=== PATIENT | female | born 1930 | race Caucasian/White ===

== ENCOUNTER 2018-05-04 11:22 | Observation (INO) ==
--- NOTE | 2018-05-04 12:51 | ED ---
HPI General Chief complaint: Extremity Problem,Nontraumatic Stated complaint: Lt leg swelling/redness x this am Time Seen by Provider: 05/04/18 12:04 Source: patient Mode of arrival: ambulatory Limitations: no limitations History of Present Illness HPI Narrative: Patient presents with increased pain and discomfort and redness of the left lower extremity. No chills or fever. Patient is normally stable and has no other signs or symptoms. See medical history Related Data Home Medications Medication Instructions Recorded Confirmed warfarin [Coumadin] PO DAILY 05/04/18 Allergies Allergy/AdvReac Type Severity Reaction Status Date / Time Sulfa (Sulfonamide Allergy Severe FACIAL Verified 05/04/18 11:44 Antibiotics) SWELLING penicillin G Allergy Unknown UNKNOWN Verified 05/04/18 11:44 aspirin AdvReac Intermediate Hives Verified 05/04/18 11:44 Review of Systems ROS: all other systems reviewed are negative [facility] Medical History Medical History DVT (deep venous thrombosis) (Acute) High cholesterol (Acute) Hx of hysterectomy (Acute) Phlebitis (Acute) Surgical History Surgical History History of tonsillectomy and adenoidectomy (Acute) Hx of appendectomy (Acute) Hx of varicose vein stripping (Acute) Social History Social History Substance History: No History of Abuse Second Hand Smoke Exposure: No Smoking Status: Former smoker Tobacco Type: Cigarettes How Often Do You Have a Drink Containing Alcohol: Never Recent Travel in [facility] within the Last 8 Weeks: No Recent Out of Country Travel within the Last 8 Weeks: No Immunization History Tetanus Immunization: Unsure Exam Narrative Exam Narrative: GENERAL: [-] SKIN: Focused skin assessment warm/dry. HEAD: Atraumatic. Normocephalic. EYES: Pupils equal and round. No scleral icterus. No injection or drainage. ENT: No nasal bleeding or discharge. Mucous membranes pink and moist. NECK: Trachea midline. No JVD. CARDIOVASCULAR: Regular rate and rhythm. No murmur appreciated. RESPIRATORY: No accessory muscle use. Clear to auscultation. Breath sounds equal bilaterally. Crepitant rales in bases clear with deep inspiration GASTROINTESTINAL: Abdomen soft, non-tender, nondistended. Hepatic and splenic margins not palpable. MUSCULOSKELETAL: Patient has bilateral pretibial edema however significant swelling to the left foreleg and ankle and foot. With erythema and vesicles. No lymphangitis. NEUROLOGICAL: Awake and alert. No obvious cranial nerve deficits. Motor grossly within normal limits. Normal speech. PSYCHIATRIC: Appropriate mood and affect; insight and judgment normal. Course Initial Documented Vital Signs Temperature 97.9 F 05/04/18 11:37 Pulse Rate 71 05/04/18 11:37 Respiratory Rate 20 05/04/18 11:37 Blood Pressure 155/72 H 05/04/18 11:37 Pulse Oximetry 100 05/04/18 11:37 Last Documented Vital Signs Temperature 97.9 F 05/04/18 11:37 Pulse Rate 70 05/04/18 14:11 Respiratory Rate 18 05/04/18 14:11 Blood Pressure 143/62 H 05/04/18 14:11 Pulse Oximetry 96 05/04/18 14:11 Critical Care Time Critical Care Time: No Medical Decision Making MDM Narrative Medical decision making narrative: Patient has cellulitis of lower extremity of new onset. Patient reportedly had no erythema or significant swelling yesterday however woke up with significant discomfort and finally came into the emergency department for further evaluation. No chills or fever. Medical Screen Exam Complete: Yes Emergency Medical Condition: Yes Lab Data Result diagrams: 05/04/18 13:17 05/04/18 13:17 Lab Results 05/04/18 05/04/18 05/04/18 Range/Units 13:00 13:17 13:17 CBC w Diff Auto diff final WBC 4.9 (4.0-11.0) th/mm3 RBC 4.63 (4.00-5.30) mil/mm3 Hgb 13.3 (11.6-15.3) gm/dL Hct 39.7 (35.0-46.0) % MCV 85.7 (80.0-100.0) fL MCH 28.6 (27.0-34.0) pg MCHC 33.3 (32.0-36.0) % RDW 14.3 (11.6-17.2) % Plt Count 190 (150-450) th/mm3 MPV 7.7 (7.0-11.0) fL Neut % (Auto) 71.0 H (16.0-70.0) % Lymph % (Auto) 18.4 (9.0-44.0) % [place] % (Auto) 8.8 H (0.0-8.0) % Eos % (Auto) 1.3 (0.0-4.0) % Baso % (Auto) 0.5 (0.0-2.0) % Neut # (Auto) 3.5 (1.8-7.7) th/mm3 Lymph # (Auto) 0.9 L (1.0-4.8) th/mm3 [place] # (Auto) 0.4 (0.0-0.9) th/mm3 Eos # (Auto) 0.1 (0.0-0.4) th/mm3 Baso # (Auto) 0.0 (0.0-0.2) th/mm3 WBC Differential . Differential Comment . PT 18.2 H (9.8-11.6) sec INR 1.8 Ratio APTT 35.6 H (24.3-30.1) sec Sodium (136-145) meq/L Potassium (3.5-5.1) meq/L Chloride (98-107) meq/L Carbon Dioxide (21.0-32.0) meq/L Anion Gap (5-15) meq/L BUN (7-18) mg/dL Creatinine (0.50-1.00) mg/dL Estimated GFR (>89) mL/min Random Glucose (74-106) mg/dL Lactic Acid (0.4-2.0) mmol/L Calcium (8.5-10.1) mg/dL Total Bilirubin (0.2-1.0) mg/dL AST (15-37) U/L ALT (10-53) U/L Alkaline Phosphatase (45-117) U/L Total Protein (6.4-8.2) g/dL Albumin (3.4-5.0) g/dL Urine Color Yellow (Yellw/Straw) Urine Clarity Cloudy H (Clear) Urine pH 6.0 (5.0-8.5) Ur Specific [place] 1.010 (1.002-1.035) Urine Protein Negative (Neg-Trace) mg/dL Urine Glucose (UA) Negative (Negative) mg/dL Urine Ketones Negative (Negative) mg/dL Urine Occult Blood Small H (Negative) Urine Nitrate Positive H (Negative) Urine Bilirubin Negative (Negative) Urine Urobilinogen 0.2 (Less than 2) mg/dL Ur Leukocyte Esterase Large H (Negative) Urine WBC 21-50 H (0-5) /hpf Urine Bacteria Many H (None) /hpf Micro UA Comment Culture indicated Ur Microscopic Review Microscopic reviewed Urine Culture Comments Culture indicated 05/04/18 05/04/18 Range/Units 13:17 13:17 CBC w Diff WBC (4.0-11.0) th/mm3 RBC (4.00-5.30) mil/mm3 Hgb (11.6-15.3) gm/dL Hct (35.0-46.0) % MCV (80.0-100.0) fL MCH (27.0-34.0) pg MCHC (32.0-36.0) % RDW (11.6-17.2) % Plt Count (150-450) th/mm3 MPV (7.0-11.0) fL Neut % (Auto) (16.0-70.0) % Lymph % (Auto) (9.0-44.0) % [place] % (Auto) (0.0-8.0) % Eos % (Auto) (0.0-4.0) % Baso % (Auto) (0.0-2.0) % Neut # (Auto) (1.8-7.7) th/mm3 Lymph # (Auto) (1.0-4.8) th/mm3 [place] # (Auto) (0.0-0.9) th/mm3 Eos # (Auto) (0.0-0.4) th/mm3 Baso # (Auto) (0.0-0.2) th/mm3 WBC Differential Differential Comment PT (9.8-11.6) sec INR Ratio APTT (24.3-30.1) sec Sodium 137 (136-145) meq/L Potassium 3.8 (3.5-5.1) meq/L Chloride 103 (98-107) meq/L Carbon Dioxide 24.9 (21.0-32.0) meq/L Anion Gap 9 (5-15) meq/L BUN 37 H (7-18) mg/dL Creatinine 1.20 H (0.50-1.00) mg/dL Estimated GFR 42 L (>89) mL/min Random Glucose 89 (74-106) mg/dL Lactic Acid 0.7 (0.4-2.0) mmol/L Calcium 9.2 (8.5-10.1) mg/dL Total Bilirubin 0.6 (0.2-1.0) mg/dL AST 34 (15-37) U/L ALT 28 (10-53) U/L Alkaline Phosphatase 59 (45-117) U/L Total Protein 8.9 H (6.4-8.2) g/dL Albumin 4.1 (3.4-5.0) g/dL Urine Color (Yellw/Straw) Urine Clarity (Clear) Urine pH (5.0-8.5) Ur Specific [place] (1.002-1.035) Urine Protein (Neg-Trace) mg/dL Urine Glucose (UA) (Negative) mg/dL Urine Ketones (Negative) mg/dL Urine Occult Blood (Negative) Urine Nitrate (Negative) Urine Bilirubin (Negative) Urine Urobilinogen (Less than 2) mg/dL Ur Leukocyte Esterase (Negative) Urine WBC (0-5) /hpf Urine Bacteria (None) /hpf Micro UA Comment Ur Microscopic Review Urine Culture Comments Imaging Data Radiologist's impression: Venous Doppler Study 05/04/18 13:21 CONCLUSION: 1. No evidence of DVT. Discharge Plan Discharge Disposition Patient Disposition: 30 Still Patient Physicians Team ED Provider: Mario Cantor Primary Care Provider: UNKNOWN, Attending Provider: Samuel Mccormack Discharge Interventions Interventions: ED Discharge Assessment Last Done: 05/04/18 16:29 Vital Signs Last Done: 05/04/18 14:11 Status ED Status: Admitted Observation Patient
[2018-05-04] MEDS ORDERED: Vancomycin Inj 1 GM/200 ML PIGGYBACK IV.SIG ONE (12:52)
[2018-05-04 13:36] LABS: Chloride 103 meq/L (98-107); Potassium 3.8 meq/L (3.5-5.1); Sodium 137 meq/L (136-145)
[2018-05-04 13:37] LABS: Baso % (Auto) 0.5 % (0.0-2.0); Eos # (Auto) 0.1 th/mm3 (0.0-0.4); Eos % (Auto) 1.3 % (0.0-4.0); Hematocrit 39.7 % (35.0-46.0); Hemoglobin 13.3 gm/dL (11.6-15.3); Lymph # (Auto) 0.9 th/mm3 (1.0-4.8); Lymph % (Auto) 18.4 % (9.0-44.0); Mean Corpuscular HGB Conc 33.3 % (32.0-36.0); Mean Corpuscular Hemoglobin 28.6 pg (27.0-34.0); Mean Corpuscular Volume 85.7 fL (80.0-100.0); Mean Platelet Volume 7.7 fL (7.0-11.0); Mono # (Auto) 0.4 th/mm3 (0.0-0.9); Mono % (Auto) 8.8 % (0.0-8.0); Neut # (Auto) 3.5 th/mm3 (1.8-7.7); Platelet Count 190 th/mm3 (150-450); Red Blood Count 4.63 mil/mm3 (4.00-5.30); Red Cell Distribution Width 14.3 % (11.6-17.2); White Blood Count 4.9 th/mm3 (4.0-11.0)
[2018-05-04 13:39] LABS: Activated Partial Thrombo Time 35.6 sec (24.3-30.1); Albumin 4.1 g/dL (3.4-5.0); Anion Gap 9 meq/L (5-15); Calcium 9.2 mg/dL (8.5-10.1); Carbon Dioxide 24.9 meq/L (21.0-32.0); Glucose,Random 89 mg/dL (74-106); INR 1.8 Ratio; Prothrombin Time 18.2 sec (9.8-11.6)
[2018-05-04 13:40] LABS: Bilirubin,Urine Negative (Negative); Clarity,Urine Cloudy (Clear); Color,Urine Yellow (Yellw/Straw); Glucose,Urine (UA) Negative (Negative); Leukocyte Esterase,Urine Large (Negative); Nitrite,Urine Positive (Negative); Urobilinogen,Urine 0.2 mg/dL (Less than 2)
[2018-05-04 13:40] LABS: Blood Urea Nitrogen 37 mg/dL (7-18)
[2018-05-04 13:42] LABS: Alanine Aminotransferase 28 U/L (10-53); Aspartate Aminotransferase 34 U/L (15-37)
[2018-05-04 13:43] LABS: Glomerular Filtration Rate 42 mL/min (>89)
[2018-05-04 13:44] LABS: Total Protein 8.9 g/dL (6.4-8.2)
--- NOTE | 2018-05-04 13:44 | US ---
EXAM DATE: 05/04/2018 1:21 PM EDT AGE/SEX: 88 years / Female INDICATIONS: Left leg pain. CLINICAL DATA: This is the patient's initial encounter. Patient reports that signs and symptoms have been present for 1 day and indicates a pain score of 4/10. MEDICAL/SURGICAL HISTORY: Deep venous thrombosis. Hypercholesterolemia. Phlebitis. Hysterect janki. Tonsillectomy. Appendectomy. Varicose vein stripping. Adenoidectomy. COMPARISON: TLI, US LEG VENOUS DOPPLER, LEFT, 01/10/2017. . TECHNIQUE: Venous ultrasound of both lower extremities was performed from the inguinal ligament to t he proximal calf. Real-time, color Doppler and spectral tracing, compression and augmentation techni ques were used. FINDINGS: Normal compression of the deep venous system from the inguinal region to the proximal calf . No echogenic clot is seen. Normal response of the venous system to augmentation and respiration. Th ere is edema in the subcutaneous soft tissues of the calf. CONCLUSION: 1. No evidence of DVT. Electronically signed by: Joaquin Stearns MD 05/04/2018 1:43 PM EDT
[2018-05-04 13:45] LABS: Alkaline Phosphatase 59 U/L (45-117)
[2018-05-04 13:46] LABS: Bacteria,Urine Many /hpf; WBC,Urine 21-50 /hpf (0-5)
[2018-05-04] MEDS ORDERED: Vancomycin Inj 1,000 MG in Sodium Chlor 0.9% Inj 250 ML IV.SIG ONE (14:00)
[2018-05-04] MEDS ORDERED: Bisacodyl 10 MG Supp RECTAL PRN (15:42)
[2018-05-04] MEDS ORDERED: Acetaminophen 325 MG Tablet PO PRN (15:42)
--- NOTE | 2018-05-04 16:52 | P.HP ---
History of Present Illness Primary Care Physician: UNKNOWN Chief Complaint: Left lower extremity pain and redness History of Present Illness: This is a pleasant 88-year-old female patient with a known medical history of DVT on Coumadin who presented to the ED with complaints of sudden left lower extremity pain and redness. Patient states she was on her feet all day yesterday cleaning the house and doing housework, went to bed in her normal state of health and woke up with the left lower extremity swelling and increasing pain. Patient does have a history of arthritis. Has had a left lower extremity DVT in the past on Coumadin. She denies any recent illness including fever, chills, cough, headache, dumping, nausea vomiting diarrhea or dysuria. She does admit to history of recent UTI, does not remember what medication she was on to treat this but she recently finished her antibiotics within the last month. Patient lives at home alone, able to perform all ADLs per self. Does not smoke cigarettes. History of varicose vein stripping 1958 & 1961. - Diagnosis (1) PVD (peripheral vascular disease) (2) Cellulitis (3) UTI (urinary tract infection) Review of Systems All other systems reviewed negative except as stated in HPI PMFSH - History History Provided By: Patient - Medical History Medical History: Medical History (Last Reviewed 05/04/18 @ 16:47 by Naima Marmolejo) DVT (deep venous thrombosis) High cholesterol Hx of hysterectomy Phlebitis - Surgical History Surgical History: Surgical History (Last Reviewed 05/04/18 @ 16:47 by Naima Marmolejo) History of tonsillectomy and adenoidectomy Hx of appendectomy Hx of varicose vein stripping - Family History Family History: Family History (Last Updated 05/04/18 @ 16:48 by Naima Marmolejo) Other Family history non-contributory - Tobacco History Second Hand Smoke Exposure: No Tobacco Use In Past 30 Days: No Smoking Status: Former smoker Tobacco Type: Cigarettes - Alcohol History How Often Do You Have a Drink Containing Alcohol: Never - Substance Use History Substance History: No History of Abuse - Travel History Recent Travel in the [facility] Within the Last 8 Weeks: No Recent Travel Out of the Country Within the Last 8 Weeks: No - Immunization History Tetanus Immunization: Unsure Medications and Allergies Active Medications: Active Medications Acetaminophen (Tylenol) 650 mg PO Q4H PRN PRN Reason: Temp > 100.4 Al Hydroxide/Mg Hydroxide (Milk Of Magnesia Liq) 30 ml PO Q12H PRN PRN Reason: Mild Constipation Bisacodyl (Dulcolax Supp) 10 mg RECTAL DAILY PRN PRN Reason: SEVERE CONSITIPATION Heparin Sodium (Porcine) (Heparin Inj) 5,000 units SQ Q12H RAVEN Levofloxacin/Dextrose (Levaquin 500 Mg Premix Inj) 500 mg in 100 mls @ 100 mls/ hr IV.SIG Q24H R[place] Lactulose (Lactulose Liq) 30 ml PO DAILY PRN PRN Reason: SEVERE CONSITIPATION Ondansetron HCl (Zofran Inj) 4 mg IV.PUSH Q6H PRN PRN Reason: NAUSEA OR VOMITING Sennosides (Senokot) 17.2 mg PO Q12H PRN PRN Reason: Moderate Constipation Allergies Allergy/AdvReac Type Severity Reaction Status Date / Time Sulfa (Sulfonamide Allergy Severe FACIAL Verified 05/04/18 11:44 Antibiotics) SWELLING penicillin G Allergy Unknown UNKNOWN Verified 05/04/18 11:44 aspirin AdvReac Intermediate Hives Verified 05/04/18 11:44 Home Medications Medication Instructions Recorded Confirmed Type warfarin [Coumadin] PO DAILY 05/04/18 History Exam Vital signs: Vital Signs 05/04/18 11:37 05/04/18 14:11 Temperature 97.9 F Pulse Rate 71 70 Respiratory Rate 20 18 Blood Pressure 155/72 H 143/62 H Pulse Oximetry 100 96 Intake & Output 05/03/18 05/04/18 05/04/18 18:59 06:59 18:59 Intake Total 250 / 250 Balance 250 / 250 Weight 61 kg Intake: IV 250 / 250 Vancomycin Inj 1,000 MG In NS 250 / 250 Inj 250 ML @ 250 mls/hr IV.SIG ONCE ONE Rx#:[id number] Narrative: GENERAL: Well-developed, well-nourished patient in [facility]. SKIN: Warm and dry. No rash. Left lower extremity redness, warm to touch, pedal pulses and DP pulses 2+. Strength intact. Sensation intact. Chronic bilateral extremity discoloration. HEAD: Normocephalic. Atraumatic. EYES: Pupils equal and round. No scleral icterus. No injection or drainage. ENT: No nasal bleeding or discharge. Mucous membranes pink and moist. NECK: Supple. Trachea midline. CARDIOVASCULAR: Regular rate and rhythm. S1, S2 noted. No murmur appreciated. RESPIRATORY: No accessory muscle use. Clear to auscultation. Breath sounds equal bilaterally. GASTROINTESTINAL: Abdomen soft, non-tender, nondistended. Normoactive bowel sounds x4. MUSCULOSKELETAL: No obvious deformities. Extremities without clubbing, cyanosis. NEUROLOGICAL: Awake and alert. No obvious cranial nerve deficits. Motor grossly within normal limits. 5/5 muscle strength in bilateral upper and lower extremities. Normal speech. PSYCHIATRIC: Appropriate mood and affect; insight and judgment normal. Results - Labs CBC & Chem 7: 05/04/18 13:17 05/04/18 13:17 Labs: Laboratory Results - last 24 hr 05/04/18 05/04/18 05/04/18 13:00 13:17 13:17 CBC w Diff Auto diff final WBC 4.9 RBC 4.63 Hgb 13.3 Hct 39.7 MCV 85.7 MCH 28.6 MCHC 33.3 RDW 14.3 Plt Count 190 MPV 7.7 Neut % (Auto) 71.0 H Lymph % (Auto) 18.4 [place] % (Auto) 8.8 H Eos % (Auto) 1.3 Baso % (Auto) 0.5 Neut # (Auto) 3.5 Lymph # (Auto) 0.9 L [place] # (Auto) 0.4 Eos # (Auto) 0.1 Baso # (Auto) 0.0 WBC Differential . Differential Comment . PT 18.2 H INR 1.8 APTT 35.6 H Sodium Potassium Chloride Carbon Dioxide Anion Gap BUN Creatinine Estimated GFR Random Glucose Lactic Acid Calcium Total Bilirubin AST ALT Alkaline Phosphatase Total Protein Albumin Urine Color Yellow Urine Clarity Cloudy H Urine pH 6.0 Ur Specific [place] 1.010 Urine Protein Negative Urine Glucose (UA) Negative Urine Ketones Negative Urine Occult Blood Small H Urine Nitrate Positive H Urine Bilirubin Negative Urine Urobilinogen 0.2 Ur Leukocyte Esterase Large H Urine WBC 21-50 H Urine Bacteria Many H Micro UA Comment Culture indicated Ur Microscopic Review Microscopic reviewed Urine Culture Comments Culture indicated 05/04/18 05/04/18 13:17 13:17 CBC w Diff WBC RBC Hgb Hct MCV MCH MCHC RDW Plt Count MPV Neut % (Auto) Lymph % (Auto) [place] % (Auto) Eos % (Auto) Baso % (Auto) Neut # (Auto) Lymph # (Auto) [place] # (Auto) Eos # (Auto) Baso # (Auto) WBC Differential Differential Comment PT INR APTT Sodium 137 Potassium 3.8 Chloride 103 Carbon Dioxide 24.9 Anion Gap 9 BUN 37 H Creatinine 1.20 H Estimated GFR 42 L Random Glucose 89 Lactic Acid 0.7 Calcium 9.2 Total Bilirubin 0.6 AST 34 ALT 28 Alkaline Phosphatase 59 Total Protein 8.9 H Albumin 4.1 Urine Color Urine Clarity Urine pH Ur Specific [place] Urine Protein Urine Glucose (UA) Urine Ketones Urine Occult Blood Urine Nitrate Urine Bilirubin Urine Urobilinogen Ur Leukocyte Esterase Urine WBC Urine Bacteria Micro UA Comment Ur Microscopic Review Urine Culture Comments - Imaging Impressions Venous Doppler Study 05/04/18 13:21 CONCLUSION: 1. No evidence of DVT. Caprini VTE Risk Assessment Caprini VTE Risk Assessment: Moderate/High Risk (score >= 2) Caprini Risk Assessment Model: Point Value = 1 Point Value = 2 Point Value = 3 Point Value = 5 Age 41-60 Minor surgery BMI > 25 kg/m2 Swollen legs Varicose veins or History of unexplained or recurrent spontaneous Oral contraceptives or hormone replacement Sepsis (< 1 month) Serious lung disease, including pneumonia (< 1 month) Abnormal pulmonary function Acute myocardial infarction Congestive heart failure (< 1 month) History of inflammatory bowel disease Medical patient at bed rest Age 61-74 Arthroscopic surgery Major open surgery (> 45 min) Laparoscopic surgery (> 45 min) Malignancy Confined to bed (> 72 hours) Immobilizing plaster cast Central venous access Age >= 75 History of VTE Family history of VTE Factor V Leiden Prothrombin [id number] Lupus anticoagulant Anticardiolipin antibodies Elevated serum homocysteine Heparin-induced thrombocytopenia Other congenital or acquired thrombophilia Stroke (< 1 month) Elective arthroplasty Hip, pelvis, or leg fracture Acute spinal cord injury (< 1 month) Prophylaxis Regimen: Total Risk Factor Score Risk Level Prophylaxis Regimen 0-1 Low Early ambulation 2 Moderate Order ONE of the following: *Sequential Compression Device (SCD) *Heparin 5000 units SQ BID 3-4 Higher Order ONE of the following medications: *Heparin 5000 units SQ TID *Enoxaparin/Lovenox 40 mg SQ daily (WT < 150 kg, CrCl > 30 mL/min) *Enoxaparin/Lovenox 30 mg SQ daily (WT < 150 kg, CrCl > 10-29 mL/min) *Enoxaparin/Lovenox 30 mg SQ BID (WT < 150 kg, CrCl > 30 mL/min) AND/OR *Sequential Compression Device (SCD) 5 or more Highest Order ONE of the following medications: *Heparin 5000 units SQ TID (Preferred with Epidurals) *Enoxaparin/Lovenox 40 mg SQ daily (WT < 150 kg, CrCl > 30 mL/min) *Enoxaparin/Lovenox 30 mg SQ daily (WT < 150 kg, CrCl > 10-29 mL/min) *Enoxaparin/Lovenox 30 mg SQ BID (WT < 150 kg, CrCl > 30 mL/min) AND *Sequential Compression Device (SCD) Assessment and Plan - Assessment (1) PVD (peripheral vascular disease) Code(s): I73.9 - Peripheral vascular disease, unspecified Status: Acute (2) Cellulitis Code(s): L03.90 - Cellulitis, unspecified Status: Acute (3) UTI (urinary tract infection) Code(s): N39.0 - Urinary tract infection, site not specified Status: Acute - Plan This is an 88-year-old female patient with: Left lower extremity cellulitis -Left lower extremity redness and pain times 1 day. -Given 1 dose of vancomycin in ED. Will start on Levaquin IV. For coverage of both cellulitis and UTI. Patient is afebrile without any leukocytosis. Continue to monitor. -Encourage elevation of leg. -A left lower extremity ultrasound was done showing negative for DVT. -Will order for CHEMA. Rule out any claudication. Patient denies pain with walking. -Physical therapy consulted, input recommendations pending. -Supportive care. Urinary tract infection -Failed outpatient antibiotic therapy. -Patient states she recently finished a dose of antibiotics for UTI outpatient. -Patient presents with UA with leukocyte esterase, nitrates and white blood cells. Started on Levaquin. Blood cultures pending. Follow. Will continue to monitor, urine culture pending. 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 Will continue. Monitor INR. DVT prophylaxis: Coumadin.
[2018-05-04] MEDS ORDERED: Temazepam 15 MG Capsule PO PRN (17:05)
[2018-05-04] MEDS: Heparin - SQ 10,000 UNITS/ML Vial SQ SCH (17:32)
[2018-05-05] MEDS: Heparin - SQ 10,000 UNITS/ML Vial SQ SCH (06:44)
[2018-05-05 08:13] LABS: Baso % (Auto) 0.9 % (0.0-2.0); Eos # (Auto) 0.1 th/mm3 (0.0-0.4); Hematocrit 38.4 % (35.0-46.0); Hemoglobin 12.4 gm/dL (11.6-15.3); Lymph # (Auto) 0.7 th/mm3 (1.0-4.8); Lymph % (Auto) 17.3 % (9.0-44.0); Mean Corpuscular HGB Conc 32.3 % (32.0-36.0); Mean Corpuscular Hemoglobin 28.1 pg (27.0-34.0); Mean Platelet Volume 7.3 fL (7.0-11.0); Mono # (Auto) 0.5 th/mm3 (0.0-0.9); Mono % (Auto) 12.3 % (0.0-8.0); Neut # (Auto) 2.9 th/mm3 (1.8-7.7); Neut % (Auto) 66.5 % (16.0-70.0); Platelet Count 159 th/mm3 (150-450); Red Blood Count 4.41 mil/mm3 (4.00-5.30); Red Cell Distribution Width 13.6 % (11.6-17.2); White Blood Count 4.2 th/mm3 (4.0-11.0)
[2018-05-05 08:23] LABS: Potassium 4.6 meq/L (3.5-5.1)
[2018-05-05 08:27] LABS: Calcium 8.9 mg/dL (8.5-10.1)
[2018-05-05 08:28] LABS: Carbon Dioxide 27.5 meq/L (21.0-32.0)
--- NOTE | 2018-05-05 08:44 | P.PNIM ---
Subjective Interval history: Follow-up left lower extremity cellulitis. Patient seen and examined, sitting up in bed eating breakfast in no apparent distress. She did sleep well without any acute events overnight. She denies any pain. The swelling of her left lower extremity has improved significantly as well as the redness. Patient is able to move her extremities well. Ambulate well. No shortness of breath or chest pain noted. Vital signs are stable. Eating well without any abdominal pain, nausea or vomiting. Physical Exam Vital signs: Vital Signs 05/04/18 11:37 05/04/18 14:11 05/04/18 17:11 Temperature 97.9 F 98.2 F Pulse Rate 71 70 72 Respiratory Rate 20 18 17 Blood Pressure 155/72 H 143/62 H 142/69 H Pulse Oximetry 100 96 100 05/04/18 20:00 05/05/18 00:00 Temperature 96.3 F L 97.2 F L Pulse Rate 64 63 Respiratory Rate 20 20 Blood Pressure 112/52 L 124/59 L Pulse Oximetry 97 95 Intake & Output 05/04/18 05/05/18 05/05/18 18:59 06:59 18:59 Intake Total 730 / 730 720 / 720 Balance 730 / 730 720 / 720 Weight 61 kg 61.1 kg Intake: IV 250 / 250 Vancomycin Inj 1,000 MG In NS 250 / 250 Inj 250 ML @ 250 mls/hr IV.SIG ONCE ONE Rx#:[id number] Oral 480 / 480 720 / 720 Other: # Voids 2 3 # Bowel Movements 0 Narrative: GENERAL: Well-developed, well-nourished patient in [facility]. SKIN: Warm and dry. No rash. Left lower extremity redness and swelling improved , warm to touch, pedal pulses and DP pulses 2+. Strength intact. Sensation intact. Chronic bilateral extremity discoloration. HEAD: Normocephalic. Atraumatic. EYES: Pupils equal and round. No scleral icterus. No injection or drainage. ENT: No nasal bleeding or discharge. Mucous membranes pink and moist. NECK: Supple. Trachea midline. CARDIOVASCULAR: Regular rate and rhythm. S1, S2 noted. No murmur appreciated. RESPIRATORY: No accessory muscle use. Clear to auscultation. Breath sounds equal bilaterally. GASTROINTESTINAL: Abdomen soft, non-tender, nondistended. Normoactive bowel sounds x4. MUSCULOSKELETAL: Extremities without clubbing, cyanosis. NEUROLOGICAL: Awake and alert. No obvious cranial nerve deficits. Motor grossly within normal limits. 5/5 muscle strength in bilateral upper and lower extremities. Normal speech. PSYCHIATRIC: Appropriate mood and affect; insight and judgment normal. Results - Labs CBC & Chem 7: 05/05/18 07:55 05/05/18 07:55 Laboratory Results - last 24 hr 05/04/18 05/04/18 05/04/18 13:00 13:17 13:17 CBC w Diff Auto diff final WBC 4.9 RBC 4.63 Hgb 13.3 Hct 39.7 MCV 85.7 MCH 28.6 MCHC 33.3 RDW 14.3 Plt Count 190 MPV 7.7 Neut % (Auto) 71.0 H Lymph % (Auto) 18.4 [place] % (Auto) 8.8 H Eos % (Auto) 1.3 Baso % (Auto) 0.5 Neut # (Auto) 3.5 Lymph # (Auto) 0.9 L [place] # (Auto) 0.4 Eos # (Auto) 0.1 Baso # (Auto) 0.0 WBC Differential . Differential Comment . PT 18.2 H INR 1.8 APTT 35.6 H Sodium Potassium Chloride Carbon Dioxide Anion Gap BUN Creatinine Estimated GFR Random Glucose Lactic Acid Calcium Total Bilirubin AST ALT Alkaline Phosphatase Total Protein Albumin Urine Color Yellow Urine Clarity Cloudy H Urine pH 6.0 Ur Specific [place] 1.010 Urine Protein Negative Urine Glucose (UA) Negative Urine Ketones Negative Urine Occult Blood Small H Urine Nitrate Positive H Urine Bilirubin Negative Urine Urobilinogen 0.2 Ur Leukocyte Esterase Large H Urine WBC 21-50 H Urine Bacteria Many H Micro UA Comment Culture indicated Ur Microscopic Review Microscopic reviewed Urine Culture Comments Culture indicated 05/04/18 05/04/18 05/05/18 13:17 13:17 07:55 CBC w Diff Auto diff final WBC 4.2 RBC 4.41 Hgb 12.4 Hct 38.4 MCV 87.0 MCH 28.1 MCHC 32.3 RDW 13.6 Plt Count 159 MPV 7.3 Neut % (Auto) 66.5 Lymph % (Auto) 17.3 [place] % (Auto) 12.3 H Eos % (Auto) 3.0 Baso % (Auto) 0.9 Neut # (Auto) 2.9 Lymph # (Auto) 0.7 L [place] # (Auto) 0.5 Eos # (Auto) 0.1 Baso # (Auto) 0.0 WBC Differential . Differential Comment . PT INR APTT Sodium 137 Potassium 3.8 Chloride 103 Carbon Dioxide 24.9 Anion Gap 9 BUN 37 H Creatinine 1.20 H Estimated GFR 42 L Random Glucose 89 Lactic Acid 0.7 Calcium 9.2 Total Bilirubin 0.6 AST 34 ALT 28 Alkaline Phosphatase 59 Total Protein 8.9 H Albumin 4.1 Urine Color Urine Clarity Urine pH Ur Specific [place] Urine Protein Urine Glucose (UA) Urine Ketones Urine Occult Blood Urine Nitrate Urine Bilirubin Urine Urobilinogen Ur Leukocyte Esterase Urine WBC Urine Bacteria Micro UA Comment Ur Microscopic Review Urine Culture Comments 05/05/18 07:55 CBC w Diff WBC RBC Hgb Hct MCV MCH MCHC RDW Plt Count MPV Neut % (Auto) Lymph % (Auto) [place] % (Auto) Eos % (Auto) Baso % (Auto) Neut # (Auto) Lymph # (Auto) [place] # (Auto) Eos # (Auto) Baso # (Auto) WBC Differential Differential Comment PT INR APTT Sodium 141 Potassium 4.6 D Chloride 107 Carbon Dioxide 27.5 Anion Gap 7 BUN 25 H Creatinine 0.90 Estimated GFR 59 L Random Glucose 89 Lactic Acid Calcium 8.9 Total Bilirubin AST ALT Alkaline Phosphatase Total Protein Albumin Urine Color Urine Clarity Urine pH Ur Specific [place] Urine Protein Urine Glucose (UA) Urine Ketones Urine Occult Blood Urine Nitrate Urine Bilirubin Urine Urobilinogen Ur Leukocyte Esterase Urine WBC Urine Bacteria Micro UA Comment Ur Microscopic Review Urine Culture Comments - Imaging Impressions Venous Doppler Study 05/04/18 13:21 CONCLUSION: 1. No evidence of DVT. Assessment and Plan - Assessment (1) PVD (peripheral vascular disease) Code(s): I73.9 - Peripheral vascular disease, unspecified Status: Acute (2) Cellulitis Code(s): L03.90 - Cellulitis, unspecified Status: Acute (3) UTI (urinary tract infection) Code(s): N39.0 - Urinary tract infection, site not specified Status: Acute - Plan This is an 88-year-old female patient with: Left lower extremity cellulitis, improving. -Left lower extremity redness and pain times 1 day. -Given 1 dose of vancomycin in ED. Will start on Levaquin IV. For coverage of both cellulitis and UTI. Patient is afebrile without any leukocytosis. -Encourage elevation of leg. -A left lower extremity ultrasound was done showing negative for DVT. -Will hold off on CHEMA. This is secondary to cellulitis. Improvement seen overnight on Levaquin IV. -Supportive care. Urinary tract infection -Failed outpatient antibiotic therapy. -Patient states she recently finished a dose of antibiotics for UTI outpatient. -Patient presents with UA with leukocyte esterase, nitrates and white blood cells. Started on Levaquin. Blood cultures neg to date. Urine culture pending. 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 Will continue. DVT prophylaxis: Coumadin. DC home. Follow up PCP. ABX as written. Activity as tolerated. Coumadin diet.
[2018-05-05 08:58] VITALS: BP 146/64; PULSE 68; RESP 17; TEMP 97.6; O2SAT 98
[2018-05-05] MEDS ORDERED: Levofloxacin 500 mg Premix Inj 500 MG/100 ML PIGGYBACK IV.SIG SCH (11:00)
[2018-05-05] MEDS ORDERED: Vancomycin Inj 1 GM/200 ML PIGGYBACK IV.SIG SCH (12:00)
[2018-05-05] MEDS ORDERED: Vancomycin Inj 1,000 MG in Sodium Chlor 0.9% Inj 250 ML IV.SIG SCH (12:00)
== END 2018-05-05 13:41 | disposition home or self-care (01) ==
LOC: PHEDA 11:22 → PHEFT 11:22 → PHEDA 16:30 → PH3 16:32
PROVIDERS: ADMIT Internal Medicine; ATTEND Internal Medicine